=== PATIENT | female | born 1940 | race Caucasian/White ===

== ENCOUNTER 2016-09-01 15:04 | Inpatient (IN) | payer MEDICARE, BC ==
[~2016-09-01] VITALS: Ht 185.4 cm; Wt 76.3 kg
[2016-09-01] MEDS ORDERED: BISACODYL 10 MG SUPP RECTAL PRN (16:20)
[2016-09-01] MEDS ORDERED: BISACODYL EC 5 MG TAB PO PRN (16:20)
[2016-09-01] MEDS ORDERED: SALINE FLUSH 10 ML FLUSH PRN (16:20)
[2016-09-01] MEDS ORDERED: ALU/MAG/SIM 30 ML UDC PO PRN (16:20)
[2016-09-01] MEDS: GABAPENTIN 300 MG CAP PO SCH ×2 (16:20→21:22)
[2016-09-01] MEDS ORDERED: GLUCAGON 1 MG VIAL IM PRN (16:20)
[2016-09-01] MEDS ORDERED: DEXTROSE 50% SYRINGE 50 ML IV PRN (16:20)
[2016-09-01] MEDS ORDERED: MAG HYDROX 30 ML UDC PO PRN (16:20)
[2016-09-01 18:35] VITALS: BP_SYST 150; BP_SYST 156; RESP 18; TEMP 98.1
[2016-09-01 18:36] VITALS: Ht 185.4 cm; Wt 76.3 kg
[2016-09-01 19:00] VITALS: BP_SYST 168; RESP 18; TEMP 98.2
[2016-09-01] MEDS ORDERED: METOPROLOL XL 50 MG TAB PO SCH (21:00)
[2016-09-01] MEDS: amLODIPine 2.5 MG TAB PO SCH (21:22)
[2016-09-01] MEDS: Atorvastatin 40 MG TAB PO SCH (21:22)
[2016-09-01] MEDS: SALINE FLUSH 10 ML FLUSH SCH (21:22)
[2016-09-01 23:27] VITALS: BP_SYST 149; RESP 18; TEMP 98.7
[2016-09-02] VITALS (7 sets, daily range): BP systolic 128–151; RESP 16–18; TEMP 97.4–98.7
[2016-09-02] MEDS: SODIUM CHLORIDE 0.9% FLUSH BAG 500 ML IV SCH (06:00)
[2016-09-02] MEDS: PANTOPRAZOLE 40 MG TAB PO SCH (06:07)
[2016-09-02] MEDS: amLODIPine 2.5 MG TAB PO SCH (08:20)
[2016-09-02] MEDS: GABAPENTIN 300 MG CAP PO SCH ×3 (08:21→21:13)
[2016-09-02] MEDS: SALINE FLUSH 10 ML FLUSH SCH ×2 (08:21→21:13)
[2016-09-02] MEDS: METOPROLOL XL 25 MG TAB PO SCH (10:53)
[2016-09-02] MEDS: DEXAMETHASONE 0.5 MG TAB PO SCH ×3 (10:53→21:13)
[2016-09-02] MEDS: ACETAMINOPHEN 325 MG TAB PO PRN (12:48)
[2016-09-02] MEDS: Atorvastatin 40 MG TAB PO SCH (21:13)
[2016-09-03] VITALS (7 sets, daily range): BP systolic 119–152; RESP 18–20; TEMP 97.6–98.2
[2016-09-03] MEDS: SODIUM CHLORIDE 0.9% FLUSH BAG 500 ML IV SCH (05:36)
[2016-09-03] MEDS: PANTOPRAZOLE 40 MG TAB PO SCH (06:19)
[2016-09-03] MEDS: DEXAMETHASONE 0.5 MG TAB PO SCH ×3 (08:41→20:30)
[2016-09-03] MEDS: SALINE FLUSH 10 ML FLUSH SCH ×2 (08:42→20:30)
[2016-09-03] MEDS: GABAPENTIN 300 MG CAP PO SCH ×3 (08:42→20:30)
[2016-09-03] MEDS: METOPROLOL XL 25 MG TAB PO SCH (08:42)
[2016-09-03] MEDS: amLODIPine 2.5 MG TAB PO SCH (08:42)
[2016-09-03] MEDS: METFORMIN 500 MG TAB PO SCH (11:52)
[2016-09-03] MEDS: ACETAMINOPHEN 325 MG TAB PO PRN (19:55)
[2016-09-03] MEDS: Atorvastatin 40 MG TAB PO SCH (20:30)
[2016-09-04] VITALS (8 sets, daily range): BP systolic 119–154; RESP 16–20; TEMP 97.7–98.7
[2016-09-04] MEDS: SODIUM CHLORIDE 0.9% FLUSH BAG 500 ML IV SCH ×2 (05:31→23:00)
[2016-09-04] MEDS: PANTOPRAZOLE 40 MG TAB PO SCH (06:15)
[2016-09-04] MEDS: amLODIPine 2.5 MG TAB PO SCH (09:07)
[2016-09-04] MEDS: SALINE FLUSH 10 ML FLUSH SCH ×2 (09:07→20:18)
[2016-09-04] MEDS: DEXAMETHASONE 0.5 MG TAB PO SCH ×3 (09:07→20:18)
[2016-09-04] MEDS: METFORMIN 500 MG TAB PO SCH (09:07)
[2016-09-04] MEDS: GABAPENTIN 300 MG CAP PO SCH ×3 (09:07→20:18)
[2016-09-04] MEDS: METOPROLOL XL 25 MG TAB PO SCH (09:10)
[2016-09-04] MEDS: Atorvastatin 40 MG TAB PO SCH (20:18)
[2016-09-05] VITALS (9 sets, daily range): BP systolic 116–165; RESP 18–22; TEMP 97.6–98.3
[2016-09-05] MEDS: PANTOPRAZOLE 40 MG TAB PO SCH (06:08)
[2016-09-05] MEDS ORDERED: MISSING DOSE XX ONE (08:25)
[2016-09-05] MEDS: SALINE FLUSH 10 ML FLUSH SCH ×2 (08:28→20:39)
[2016-09-05] MEDS: DEXAMETHASONE 0.5 MG TAB PO SCH ×3 (08:29→20:39)
[2016-09-05] MEDS: METOPROLOL XL 25 MG TAB PO SCH (08:29)
[2016-09-05] MEDS: METFORMIN 500 MG TAB PO SCH (08:29)
[2016-09-05] MEDS: amLODIPine 2.5 MG TAB PO SCH (08:29)
[2016-09-05] MEDS: GABAPENTIN 300 MG CAP PO SCH ×3 (09:53→20:39)
[2016-09-05] MEDS: Atorvastatin 40 MG TAB PO SCH (20:39)
[2016-09-05] MEDS: SODIUM CHLORIDE 0.9% FLUSH BAG 500 ML IV SCH (22:38)
[2016-09-06] VITALS: BP_SYST 149; RESP 18; TEMP 98.4
[2016-09-06 03:00] VITALS: BP_SYST 160; RESP 18; TEMP 98.3
[2016-09-06] MEDS: PANTOPRAZOLE 40 MG TAB PO SCH (06:11)
[2016-09-06 07:52] VITALS: BP_SYST 160; RESP 18; TEMP 97.9
[2016-09-06] MEDS: METFORMIN 500 MG TAB PO SCH (09:07)
[2016-09-06] MEDS: METOPROLOL XL 25 MG TAB PO SCH (09:07)
[2016-09-06] MEDS: SALINE FLUSH 10 ML FLUSH SCH (09:07)
[2016-09-06] MEDS: amLODIPine 2.5 MG TAB PO SCH (09:07)
[2016-09-06] MEDS: DEXAMETHASONE 0.5 MG TAB PO SCH (09:08)
[2016-09-06] MEDS: GABAPENTIN 300 MG CAP PO SCH (09:08)
[2016-09-06 11:29] VITALS: BP_SYST 151; RESP 18; TEMP 97.8
[2016-09-06 11:47] VITALS: BP_SYST 151; RESP 18; TEMP 97.8
== END 2016-09-06 18:00 | disposition home health service (06) | DRG 66 ==
LOC: ENRESERVTM → ENRESERVDT → ER 15:04 → ENPENDDIS 16:28 → EMR 16:28 → PCU 18:00
PROVIDERS: ADMIT Internal Medicine; ATTEND Internal Medicine
DX: I62.01 Nontraumatic acute subdural hemorrhage (principal); E11.42 Type 2 diabetes mellitus with diabetic polyneuropathy; I10 Essential (primary) hypertension; Z79.84 Long term (current) use of oral hypoglycemic drugs; Z79.02 Long term (current) use of antithrombotics/antiplatelets; R20.0 Anesthesia of skin; I25.10 Atherosclerotic heart disease of native coronary artery without angina pectoris; Z79.82 Long term (current) use of aspirin; I25.2 Old myocardial infarction
CPT/HCPCS: 36415; 70450; 70553; 71010; 80048; 80053; 82565; 82947; 83735; 84439; 84443; 85025; 85610; 85652; 85730; 86141; 93005; 94799; 99220; 99231; 99232; 99233; 99238